=== PATIENT | female | born 1925 | race Caucasian/White ===

== ENCOUNTER 2017-01-17 10:42 | Observation (INO) | payer MEDICARE, OTHER ==
[~2017-01-17] VITALS: Ht 157.5 cm; Wt 88.1 kg
[2017-01-18] MEDS ORDERED: SYNTHROID137 MCG PO (11:22)
[2017-01-18] MEDS ORDERED: [UNRECOGNIZED DRUG - OTHER] PO (11:23)
[2017-01-18] MEDS ORDERED: METOPROLOL TART25 MG PO (11:24)
[2017-01-18] MEDS ORDERED: ICAPS TABLET1 EACH PO (11:24)
[2017-01-18] MEDS ORDERED: WELLBUTRIN SR200 MG PO (11:25)
[2017-01-18] MEDS ORDERED: ALBUTEROL0.63 MG/3 NEB (11:25)
[2017-01-18] MEDS ORDERED: COLCHICINE0.6 MG PO (11:25)
[2017-01-18] MEDS ORDERED: SINGULAIR10 MG PO (11:26)
[2017-01-18] MEDS ORDERED: POTASSIUM CHLO10 MEQ PO (11:26)
[2017-01-18] MEDS ORDERED: LOSARTAN-HCTZ1 EAC1 PO (11:26)
[2017-01-18] MEDS ORDERED: BUSPIRONE HCL15 MG PO (11:27)
[2017-01-18] MEDS ORDERED: NEOMYCIN-POLYMY10 ML AU (11:27)
[2017-01-18] MEDS ORDERED: CLARITIN10 MG PO (11:28)
[2017-01-18] MEDS ORDERED: FLUTICASONE PRO16 GM NS (11:28)
[2017-01-18] MEDS ORDERED: ACETAMINOPHEN325 MG PO (11:28)
[2017-01-18] MEDS ORDERED: LEVAQUIN750 MG PO (11:29)
== END 2017-01-18 13:15 | disposition home or self-care (01) ==
LOC: ER 10:42 → MED 14:48
PROVIDERS: ADMIT Internal Medicine
DX: R41.82 Altered mental status, unspecified (principal); E86.0 Dehydration; K52.9 Noninfective gastroenteritis and colitis, unspecified; I10 Essential (primary) hypertension; E87.6 Hypokalemia; E83.42 Hypomagnesemia; J45.909 Unspecified asthma, uncomplicated; E03.9 Hypothyroidism, unspecified; F41.9 Anxiety disorder, unspecified; Z80.3 Family history of malignant neoplasm of breast; Z80.6 Family history of leukemia; Z80.8 Family history of malignant neoplasm of other organs or systems; Z79.899 Other long term (current) drug therapy; Z96.652 Presence of left artificial knee joint
CPT/HCPCS: 36415; 84145; 87486; 87581; 87633; 87798; 96361; 96365; 96366; 96372; 96375; 97161-GP; 97165; G0378; J1650